=== PATIENT | female | born 1980 | race American Indian/Alaskan Native ===

== ENCOUNTER 2019-05-14 08:27 | Outpatient (CLI) | payer OTHER ==
--- NOTE | 2019-05-14 10:58 | Magnetic Resonance Report ---
MRI LEFT KNEE WITHOUT CONTRAST: 01/14/19 CLINICAL: Left knee pain and derangement. TECHNIQUE: Sagittal proton density fat sat and T2, coronal T2 fat sat and T1 and axial gradient T2*sequences on a 1.5 Anahi magnet. The examination was performed using the body coil since the leg would not fit within the standard knee coil. FINDINGS: Inadequate quality examination considering that it was performed with a body coil. Both menisci are diminutive. Abnormal hyperintense oblique signal in the posterior horn medial meniscus with signal extending to the superior articular surface. Normal signal in the lateral meniscus. T2 hyperintense striations in the ACL and an otherwise intact ACL. The PCL is intact. Intact collateral ligaments. The posterolateral corner structures including the popliteus tendon are intact. No bone contusion or fracture. The overall marrow signal is normal. A moderately large knee joint effusion and a small fluid collection in the gastrocnemius-semimembranosus bursa. It measures 2.5 x 1.1 x 1.6 cm. The femoral cartilage is intact. Intact patella with normal cartilage, tendon and retinaculum. IMPRESSION: 1. Remote partial-thickness ACL tear and a remote tear of the posterior horn medial meniscus. 2. Moderately large knee joint effusion and a small popliteal cyst. 3. No evidence of acute injury.
== END 2019-05-14 08:28 | disposition home or self-care (01) ==
LOC: SPVIMAG 08:27
PROVIDERS: ATTEND Registered Nurse Orthopedic
DX: S83.242A Other tear of medial meniscus, current injury, left knee, initial encounter (principal); M71.22 Synovial cyst of popliteal space [Baker], left knee; M25.462 Effusion, left knee; X58.XXXA Exposure to other specified factors, initial encounter; Y93.89 Activity, other specified; Y92.89 Other specified places as the place of occurrence of the external cause; Y99.8 Other external cause status
CPT/HCPCS: 73721